=== PATIENT | female | born 1950 | race Native Hawaiian/Other Pacific Islander ===

== ENCOUNTER 2022-08-29 09:19 | Emergency (ER) | payer OTHER, MEDICARE ==
[~2022-08-29] VITALS: Ht 167.6 cm; Wt 98.4 kg
[2022-08-29 09:19] VITALS: TEMP 98
[2022-08-29 09:37] LABS: PLATELET COUNT 261 K/uL (152-353)
[2022-08-29 10:13] VITALS: BP 164/78
== END 2022-08-29 13:40 | disposition short-term general hospital (02) ==
LOC: ED 09:19
PROVIDERS: Emergency Medicine
DX: R55 Syncope and collapse (principal); I44.2 Atrioventricular block, complete; E87.1 Hypo-osmolality and hyponatremia; Z79.899 Other long term (current) drug therapy; R60.0 Localized edema
CPT/HCPCS: 36415; 80053; 83735; 83880; 84484; 85027; 85610; 85730; 93005; 94660; 96361; 96374; 99285; J2250; J2405